=== PATIENT | female | born 1945 | race Two or more races ===

== ENCOUNTER 2022-07-07 21:49 | Emergency (ER) | payer OTHER ==
[~2022-07-07] VITALS: Ht 147.3 cm; Wt 59.0 kg
[~2022-07-07 21:49] MED LIST: ALPR-388 PO; DONE10TA44 PO; LEVE250T2 PO; LISI20TA30 PO
--- NOTE | 2022-07-07 22:00 | NUR ---
LAWRENCE FROM [facility] C/O PT WAS "UNRESPONSIVE" PT NOW AWAKE; NONVERBAL AND CONFUSED AT BASELINE. PT NONAMBULATORY AT BASELINE. TOLERATING R/A WELL WITH NO RESP DISTRESS. SAFETY MEASURES IN PLACE.
--- NOTE | 2022-07-07 22:25 | NUR ---
ACCUCHECK BS 83
--- NOTE | 2022-07-07 22:28 | NUR ---
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
[2022-07-07 22:48] LABS: BASOPHILS % (AUTO) 0.5 % (0.0-2.0); EOSINOPHILS % (AUTO) 4.5 % (0.0-6.0); HEMATOCRIT 40 % (33-45); HEMOGLOBIN 13.4 g/dL (11.5-14.8); LYMPHOCYTES # (AUTO) 2.5 K/uL (0.8-4.8); LYMPHOCYTES % (AUTO) 38.5 % (20.0-44.0); MEAN CORPUSCULAR HGB CONC 33 g/dl (31.0-36.0); MEAN CORPUSCULAR VOLUME 89 fL (82-100); MONOCYTES # (AUTO) 0.6 K/uL (0.1-1.30); MONOCYTES % (AUTO) 8.6 % (2.0-12.0); NEUTROPHILS # (AUTO) 3.1 K/uL (1.8-8.9); NEUTROPHILS % (AUTO) 47.9 % (43.0-81.0); PLATELET COUNT (AUTO) 260 K/uL (150-450); RED BLOOD CELL COUNT(AUTO) 4.54 MIL/uL (4.0-5.2); WHITE BLOOD COUNT (AUTO) 6.5 K/uL (4.3-11.0)
--- NOTE | 2022-07-07 22:51 | NUR ---
PT TAKEN TO CT SCAN VIA [facility]
[2022-07-07 23:06] LABS: ALANINE AMINOTRANSFERASE 17 U/L (12-78); ALBUMIN 3.8 g/dL (3.4-5.0); ALKALINE PHOSPHATASE 67 U/L (46-116); ASPARTATE AMINOTRANSFERASE 16 U/L (15-37); BILIRUBIN,DIRECT 0.1 mg/dL (0.0-0.2); BILIRUBIN,TOTAL 0.4 mg/dL (0.2-1.0); CALCIUM, SERUM 9.6 mg/dL (8.5-10.1); CARBON DIOXIDE 29 mmol/L (21-32); CHLORIDE 103 mmol/L (98-107); CREATININE 1.1 mg/dL (0.6-1.3); GLUCOSE 90 mg/dL (74-106); POTASSIUM 3.9 mmol/L (3.5-5.1); SODIUM SERUM 135 mmol/L (136-145); TOTAL PROTEIN, SERUM 8.5 g/dL (6.4-8.2); UREA NITROGEN, BLOOD 24 mg/dL (7-18)
[2022-07-07 23:20] LABS: ALCOHOL, BLOOD < 3 mg/dL (0-0)
--- NOTE | 2022-07-07 23:29 | NUR ---
URINE SAMPLE COLLECTED
[2022-07-07 23:47] LABS: BILIRUBIN,URINE NEGATIVE (NEGATIVE); COLOR,URINE YELLOW (YELLOW); LEUKOCYTE ESTERASE ,URINE NEGATIVE (NEGATIVE); NITRITE, URINE NEGATIVE (NEGATIVE); PROTEIN,URINE NEGATIVE (NEGATIVE); UGLUCOSE NEGATIVE (NEGATIVE); UROBILINOGEN,URINE 0.2 EU/dL (0.2)
--- NOTE | 2022-07-08 00:05 | NUR ---
PT RETURNED TO ER BED [address]
[2022-07-08] MEDS ORDERED: ALBUTEROL FS 2.5 MG/0.5 ML VIAL.NEB ONE (00:59)
[2022-07-08] MEDS ORDERED: ALBUTEROL FS 2.5 MG/0.5 ML VIAL.NEB NEB ONE (01:00)
--- NOTE | 2022-07-08 01:09 | NUR ---
CALLED [facility] PT WILL BE TRANSPORTED IN ABOUT 90 MIN
--- NOTE | 2022-07-08 01:10 | NUR ---
RT AT PT'S BEDSIDE FOR BREATHING TX
--- NOTE | 2022-07-08 01:12 | NUR ---
RT Neb tx given, no adverse reaction, no respiratory distress noted at this time.
--- NOTE | 2022-07-08 03:01 | NUR ---
REPORT GIVEN TO ALENA FROM [facility]
--- NOTE | 2022-07-08 03:08 | NUR ---
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
[2022-07-08 03:22] VITALS: BP 138/79
== END 2022-07-08 03:23 ==
LOC: ER 22:07
DX: R41.9 Unspecified symptoms and signs involving cognitive functions and awareness (principal); Z71.1 Person with feared health complaint in whom no diagnosis is made; F03.911 Unspecified dementia, unspecified severity, with agitation; I69.320 Aphasia following cerebral infarction; I10 Essential (primary) hypertension; Z79.899 Other long term (current) drug therapy; R94.31 Abnormal electrocardiogram [ECG] [EKG]; R77.8 Other specified abnormalities of plasma proteins; G93.89 Other specified disorders of brain; Z20.822 Contact with and (suspected) exposure to COVID-19
CPT/HCPCS: 99285; 93005; 71045; 70450; 85025; 80048; 80076; 81003; 36415 ×2; 84484 ×2; 85730; 82962; 87426; 80143; 80320; 80307; 94640; C9803; G0480